=== PATIENT | female | born 1965 | race Caucasian/White ===

== ENCOUNTER 2024-08-29 15:49 | Emergency (ER) | payer BC, SELFPAY ==
--- NOTE | 2024-08-29 16:32 | PC.NURSE ---
CALLED FOR PT IN LOBBY AND OUTSIDE [phone]
--- NOTE | 2024-08-29 17:39 | PC.NURSE ---
PT CALLED 3 TIMES W/ NO ANSWER. ELSHERYLD.
== END 2024-08-29 17:40 | disposition left against medical advice (07) ==
LOC: SERX 17:47
PROVIDERS: Emergency Provider Emergency Medicine
DX: Z53.21 Procedure and treatment not carried out due to patient leaving prior to being seen by health care provider (principal)

== ENCOUNTER 2024-10-30 17:24 | Emergency (ER) | payer BC, SELFPAY ==
--- NOTE | 2024-10-30 17:27 | EKG_ITS ---
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
[2024-10-30 17:34] VITALS: BP 170/82; PULSE 69; RESP 18; TEMP 36.4; O2SAT 98; BMI 22.1
--- NOTE | 2024-10-30 17:34 | XR_ITS ---
Examination: PA lateral chest 2 views Technique: Upright PA lateral chest 2 views Exam date and time: October 30, 2024 1741 hrs. Comparison November 02, 2022 Indications: Chest pain today. Findings: Normal heart size Lungs are clear. The osseous structures are intact Impression: No active disease
--- NOTE | 2024-10-30 17:34 | PD.EDRME ---
Rapid Medical Screening Exam RME Arrival date/time: 10/30/24 17:24 59-year-old female with a history of hypertension presents to the emergency room with a chief complaint of 9 out of 10 sternal chest pain that radiates to the left arm x 1 day. I have greeted and performed a focused initial assessment of this patient. A comprehensive ED assessment and evaluation of the patient, analysis of all test results, and completion of the medical decision making process will be conducted by additional ED providers. Chief Complaint: Chest Pain Time Seen by Provider: 10/30/24 17:31 Vital signs reviewed by provider: Yes
[2024-10-30 17:58] LABS: Basophils # (Auto) 0.1 Thou/mm3 (0.0-0.2); Basophils % (Auto) 1 % (0-2.5); Eosinophils # (Auto) 0.1 Thou/mm3 (0.0-0.5); Eosinophils % (Auto) 2 % (0-10); Hematocrit 36.2 % (36.0-46.0); Hemoglobin 12.4 g/dL (12.0-16.0); Immature Granulocytes % (Auto) 0 % (0-0); Immature Granulocytes Auto 0.01 Thou/mm3 (0.00-0.00); Lymphocytes # (Auto) 2.5 Thou/mm3 (1.0-4.8); Lymphocytes % (Auto) 37 % (10-50); Mean Corpuscular HGB Conc 34.3 g/dl (31.0-37.0); Mean Corpuscular Hemoglobin 33.2 pg (25.0-35.0); Mean Corpuscular Volume 97 fL (80-100); Monocytes # (Auto) 0.5 Thou/mm3 (0.0-0.8); Monocytes % (Auto) 8 % (0-12); Neutrophils # (Auto) 3.5 Thou/mm3 (1.8-7.7); Neutrophils % (Auto) 52 % (37-80); Nucleated Red Blood Cell % 0 /100 WBC (0); Platelet Count 363 Thou/mm3 (140-440); RDW Standard Deviation 45.8 fL (36.4-46.3); Red Blood Count 3.73 Miln/mm3 (4.00-5.20); White Blood Count 6.8 Thou/mm3 (3.6-11.0)
[2024-10-30 18:16] LABS: Partial Thromboplastin Time 27.4 Seconds (22.0-36.0)
[2024-10-30 18:18] LABS: B-Type Natriuretic Peptide 22 pg/mL (0-100)
[2024-10-30 18:38] LABS: Alanine Aminotransferase 13 U/L (10-49); Albumin/Globulin Ratio 1.9 (1.2-2.2); Alkaline Phosphatase 52 U/L (46-116); Anion Gap 6 (7-16); Aspartate Amino Transferase 17 U/L (0-34); BUN/Creatinine Ratio 16 Ratio (12-20); Bilirubin,Total 0.4 mg/dL (0.3-1.2); Blood Urea Nitrogen 13 mg/dL (9-23); Calcium 9.8 mg/dL (8.3-10.6); Calcium (Corrected) 9.8 mg/dL (8.5-10.1); Carbon Dioxide 28.5 mMol/L (20.0-31.0); Chloride 104 mMol/L (98-107); Creatinine (Component) 0.8 mg/dL (0.6-1.3); Estimated Creatinine Clearance 59.1 mL/min (>60); Globulin 2.6 gm/dL (2.3-3.5); Glucose 99 mg/dL (74-106); Magnesium 2.2 mg/dL (1.6-2.6); Osmolality,Calculated 275 (275-295); Sodium 138 mMol/L (136-145); Total Protein 7.6 gm/dL (5.7-8.2); Troponin I < 0.020 ng/mL (0.0-0.045); eGFR > 60 See Note
[2024-10-30 18:55] LABS: Collection Type, Urine Clean Catch
[2024-10-30 19:29] LABS: Bilirubin,Urine Negative (Negative); Blood,Urine Negative (Negative); Clarity,Urine Clear (Clear/Hazy); Color,Urine Colorless (Lt Yel-Yel); Glucose, Urine Negative (Negative); Ketones,Urine Negative (Negative); Leukocyte Esterase,Urine Negative (Negative); Nitrite,Urine Negative (Negative); Protein,Urine Negative (Neg - Trace); RBC,Urine 2 /hpf (0-3); Specific Gravity,Urine 1.009 (1.001-1.035); Squamous Epithelial Cell,Urine 2 /hpf (0-5); Urobilinogen,Urine Negative mg/dL (0.0-1.0); WBC,Urine 1 /hpf (0-5)
[2024-10-30 19:43] LABS: Amphetamine/Methamp Scrn,U Negative (Negative); Barbiturate Screen,Urine Negative (Negative); Benzodiazepines Screen,Urine Negative (Negative); Benzoylecgonine Screen, Ur Negative (Negative); Fentanyl Screen,Urine Negative (Negative); Opiate Screen,Urine Negative (Negative); THC Screen,Urine Negative (Negative)
--- NOTE | 2024-10-30 22:01 | EDNOTE_ITS ---
ED Chest Pain RME/HPI General Chief Complaint: Chest Pain Stated Complaint: left side chest pain, radiating to left arm Time Seen by Provider: 10/30/24 17:31 Arrival date/time: 10/30/24 17:24 59-year-old female past medical history of hypertension presents emergency department complaining of left-sided chest pain that radiates to the left arm and worsens with arm movement that started 1 day ago. Patient also reports blood pressure has been elevated and she recently upped her metoprolol from 25 mg to 50mg today. Limitations: no limitations RME / HPI RME / HPI narrative: 10/30/24 17:24 59-year-old female with a history of hypertension presents to the emergency room with a chief complaint of 9 out of 10 sternal chest pain that radiates to the left arm x 1 day. I have greeted and performed a focused initial assessment of this patient. A comprehensive ED assessment and evaluation of the patient, analysis of all test results, and completion of the medical decision making process will be conducted by additional ED providers. Related Data Home Medications ?Medication ?Instructions ?Recorded ?Confirmed No Known Home Medications 12/12/19 07/05/22 Allergies Allergy/AdvReac Type Severity Reaction Status Date / Time No Known Allergies Allergy Verified 10/30/24 17:27 Review of Systems Review of Systems Systems Reviewed: All systems reviewed, normal except as documented Constitutional Constitutional: Reports system reviewed and no additional complaints, except as documented, Denies body ache(s), Denies chills and Denies fever(s) Eyes Eyes: Reports system reviewed and no additional complaints, except as documented and Denies change in vision ENT Ears, Nose, Mouth, and Throat: Reports system reviewed and no additional complaints, except as documented, Denies disequilibrium, Denies dizziness, Denies sore throat and Denies vertigo Cardiovascular Cardiovascular: Reports system reviewed and no additional complaints, except as documented, Reports chest pain and Denies dyspnea Respiratory Respiratory: Reports system reviewed and no additional complaints, except as documented, Denies chest congestion, Denies cough and Denies dyspnea Gastrointestinal Gastrointestinal: Reports system reviewed and no additional complaints, except as documented, Denies abdominal pain, Denies nausea and Denies vomiting Musculoskeletal Musculoskeletal: Reports system reviewed and no additional complaints, except as documented, Denies abnormal gait and Denies arthralgias Integumentary/Breasts Skin/Breast: Reports system reviewed and no additional complaints, except as documented, Denies erythema, Denies rash and Denies wounds Neurologic Neurologic: Reports system reviewed and no additional complaints, except as documented, Denies abnormal gait, Denies disequilibrium, Denies dizziness and Denies vertigo Past Medical History Past Medical History NEUROLOGIC: Negative Neurological Disorders or Seizures CARDIAC: Negative Cardiac Disorders or Congestive Heart Failure RESPIRATORY: Negative Chronic Obstructive Pulmonary Disease (COPD) GASTROINTESTINAL: Negative Gastrointestinal Disorders GENITOURINARY: Positive Genitourinary Disorders (TL); Negative Renal Disease MUSCULOSKELETAL: Negative Musculoskeletal Disorders ENDOCRINE: Negative Endocrine Disorders, Diabetes Mellitus Type 1 or Diabetes Mellitus Type 2 HEMATOLOGIC: Negative Blood Disorders PSYCHO/SOCIAL: Negative Depression or Anxiety OTHER HISTORY: Positive Chicken Pox; Negative Blood Transfusions, Blood Transfusion Reaction, Anesthesia Reactions or Chemotherapy Surgical History SURGICAL: Positive Tubal Ligation; Negative Ear Surgery or Joint Replacement Social History SMOKING STATUS: Former smoker ED Exam General Limitations: Present no limitations General appearance: Present alert and in no apparent distress Head Head exam: Present atraumatic Eye Eye exam: Present normal appearance, PERRL and EOMI ENT ENT exam: Present normal exam, normal oropharynx and mucous membranes moist Neck Neck exam: Present normal inspection, full ROM and trachea midline Chest Chest inspection: Present normal inspection and symmetric chest wall rise Respiratory Respiratory exam: Present normal lung sounds bilaterally Cardiovascular Cardiovascular exam: Present regular rate, normal rhythm and normal heart sounds Abdominal Exam Abdominal exam: Present soft and normal bowel sounds Extremities Exam Extremities exam: Present normal inspection and full ROM Back Exam Back exam: Present normal inspection and full ROM Neurological Exam Neurological exam: Present alert, oriented X3 and CN II-XII intact Psychiatric Psychiatric exam: Present normal affect and normal mood Skin Skin exam: Present warm, dry, intact and normal color Course Quality Measures none Orders Category Date Time Status EKG (ED ONLY) *Do not use* NOW Care 10/30/24 17:27 Completed EKG (ED Only) Stat Exams 10/30/24 17:27 Draft XR chest 2V Stat Exams 10/30/24 17:34 Completed B-Type Natriuretic Peptide Stat Lab 10/30/24 17:53 Completed CBC Stat Lab 10/30/24 17:53 Completed Comprehensive Metabolic Panel Stat Lab 10/30/24 17:53 Completed Drug Screen,Urine Stat Lab 10/30/24 18:17 Completed Magnesium Stat Lab 10/30/24 17:53 Completed Partial Thromboplastin Time Stat Lab 10/30/24 17:53 Completed Prothrombin Time with INR Stat Lab 10/30/24 17:53 Completed Troponin I Stat Lab 10/30/24 17:53 Completed Urinalysis Stat Lab 10/30/24 18:17 Completed Vital Signs Vital signs: Vital Signs Temperature 97.5 F 10/30/24 17:34 Pulse Rate 69 10/30/24 17:34 Respiratory Rate 18 10/30/24 17:34 Blood Pressure 170/82 H 10/30/24 17:34 Pulse Oximetry (%) 98 10/30/24 17:34 Oxygen Delivery Method Room Air 10/30/24 17:34 98% room air within normal limits Procedures -ED EKG Interpretation #1: Date of EK10/30/24 Time of EK:32 Rate: 76 Interpretation: Interpreted by me EKG Impression: Normal sinus rhythm, No acute ST-T changes, No ectopy, No ischemic changes and Normal QRS Chest Pain MDM Narrative MDM Narrative:: 59-year-old female past medical history of hypertension presents emergency department complaining of left-sided chest pain that radiates to the left arm and worsens with arm movement that started 1 day ago. Patient also reports blood pressure has been elevated and she recently upped her metoprolol from 25 mg to 50mg today. CBC was unremarkable for any leukocytosis. CMP was unremarkable for any elevated LFTs or gross electrolyte abnormalities. Urinalysis unremarkable. EKG sinus rhythm with normal troponin. Chest x-ray was unremarkable for any pneumonic infiltrates. Patient reports has pending visit this week with assistant associate professor. Patient data External records reviewed:: [facility] previous records Clinical information provided by:: patient Social determinants that could affect healthcare access:: none Patient has the following chronic illnesses:: See chart How is presenting disease/condition affected by chronic disease/condition?: uneffected by Evaluation data The following diagnostics were reviewed and interpreted by me:: lab results, radiology exam(s) and EKG tracing(s) Lab and/or radiology exams considered but not ordered:: Ordered Interpretation Summary: Interpreted by me Medications / Prescriptions Medications or Prescriptions considered but not ordered:: N/A Medication administrations:: N/A Consultations Consultation(s) initiated? (list below): No Diagnosis Chest Pain Differential Diagnosis: pneumothorax, stable angina, unstable angina pectoris, atypical chest pain, st elevation myocardial infarction, costochondritis and chest pain Most likely diagnosis given after review of the tests above:: Atypical chest pain Admission Indicated Admission indicated?: not indicated Admission Request Was there a request for admission?: No Disposition Plan Disposition Plan: Discharge Discharge Attestation Discharge Attestation: The patient and all family members were given an opportunity to ask questions and understood the discharge instructions. Discharge instructions specifically effects, indications for sooner follow up or return to the emergency department, and the expected course of current diagnosis. Patient condition: Stable Discharge Plan Plan Patient Disposition: HOME (Self Care) Disposition Comment: Stable Prescriptions/Referrals Prescriptions/Med Rec: No Action No Known Home Medications Referrals: Mary Cnoti MD [Primary Care Provider] - In 1 week Problem List Clinical Impression: Atypical chest pain Patient/Caregiver Discharge Instructions Discharge Activity: activity as tolerated Education Materials: ED Chest Pain, Noncardiac Additional Instructions: Continue taking your blood pressure medications as prescribed your primary care provider. Close follow-up with primary care provider and your assistant associate professor as discussed. Keep recording blood pressure and diary for follow-up visit. Return immediately to emergency department for any worsening symptoms or as needed. Print Language: Macedonian Stand Alone Forms: Rachel Award Info., Patient Portal Info Letter PA/NORMAN Supervising Physician CK/NORMAN Supervising Physician: Dr. Coronel
[2024-10-30 22:06] VITALS: BP 154/91; PULSE 62; RESP 16; O2SAT 98
== END 2024-10-30 22:07 | disposition home or self-care (01) ==
PROVIDERS: Nurse Practitioner Family; Emergency Provider Emergency Medicine; PCP Family Medicine
DX: R07.89 Other chest pain (principal); I10 Essential (primary) hypertension
CPT/HCPCS: 36415; 71046; 80053; 80307; 81001; 83735; 83880; 84484; 85025; 85610; 85730; 93005; 99283

== ENCOUNTER 2025-01-23 08:20 | Day surgery (SDC) | payer BC, SELFPAY ==
[2025-01-23] VITALS (15 sets, daily range): BP systolic 90–148; BP diastolic 52–98; PULSE 59–114; RESP 8–18; TEMP 36.8–37; O2SAT 91–100; BMI 22.3
[2025-01-23] MEDS: SODIUM CHLORIDE 0.9% 500 ML 500 ML 20 ML IV (10:01)
[2025-01-23] MEDS: DiphenhydrAMINE INJ 50 MG/ML VIAL 25 MG IV (10:05)
[2025-01-23] MEDS: fentaNYL CIT INJ 50 mCg/ML AMP 2ML (ASD USE ONLY) IV (10:08)
[2025-01-23] MEDS: MIDAZOLAM INJ 1 MG/ML VIAL 2 ML (ASD USE ONLY) 2 MG IV (10:29)
[2025-01-23] MEDS: MEPERIDINE INJ 25 MG/ML VIAL (ASD USE ONLY) IV (10:29)
== END 2025-01-23 11:50 | disposition home or self-care (01) ==
PROVIDERS: PCP Family Medicine; Referring Provider Specialist; Visit Provider Specialist
PROC: 0DBE8ZX Excision of Large Intestine, Via Natural or Artificial Opening Endoscopic, Diagnostic (ICD-10-PCS; CPT 45380; principal; 2025-01-23 09:45)
DX: K57.30 Diverticulosis of large intestine without perforation or abscess without bleeding (principal); K56.699 Other intestinal obstruction unspecified as to partial versus complete obstruction; K64.9 Unspecified hemorrhoids; Z88.0 Allergy status to penicillin
CPT/HCPCS: 45378; J1200; J2175; J2250; J3010; J7040

== ENCOUNTER → 2025-06-13 | Outpatient (CLI) | payer BC, SELFPAY ==
--- NOTE | 2025-06-13 08:03 | EKG_ITS ---
[facility] Test Date: 2025-06-13 Pat Name: ZACK ERAZO Department: Room: - Gender: Female Welding Manager: KAITLYNN : 1965 Requested By: Mary Ruiz Order Number: [id number] Reading MD: Mary Ruiz Measurements Intervals [place] Rate: 58 P: 8 [place]: 125 QRS: 70 QRSD: 81 T: 46 QT: 420 QTc: 414 Interpretive Statements SINUS BRADYCARDIA Compared to ECG 10/30/2024 17:32:54 Sinus rhythm no longer present /store/S0/[id number].pdf
[2025-06-13 08:15] LABS: Basophils # (Auto) 0.1 Thou/mm3 (0.0-0.2); Basophils % (Auto) 1 % (0-2.5); Eosinophils # (Auto) 0.1 Thou/mm3 (0.0-0.5); Eosinophils % (Auto) 2 % (0-10); Hematocrit 39.1 % (36.0-46.0); Hemoglobin 13.0 g/dL (12.0-16.0); Immature Granulocytes Auto 0.01 Thou/mm3 (0.00-0.00); Lymphocytes # (Auto) 1.8 Thou/mm3 (1.0-4.8); Lymphocytes % (Auto) 37 % (10-50); Mean Corpuscular HGB Conc 33.2 g/dl (31.0-37.0); Mean Corpuscular Hemoglobin 32.1 pg (25.0-35.0); Mean Corpuscular Volume 97 fL (80-100); Monocytes # (Auto) 0.4 Thou/mm3 (0.0-0.8); Monocytes % (Auto) 9 % (0-12); Neutrophils # (Auto) 2.4 Thou/mm3 (1.8-7.7); Neutrophils % (Auto) 51 % (37-80); Nucleated Red Blood Cell # 0.00 Thou/mm3 (0.00-0.00); Nucleated Red Blood Cell % 0 /100 WBC (0); Platelet Count 330 Thou/mm3 (140-440); RDW Standard Deviation 45.2 fL (36.4-46.3); Red Blood Count 4.05 Miln/mm3 (4.00-5.20); White Blood Count 4.7 Thou/mm3 (3.6-11.0)
[2025-06-13 08:44] LABS: Alanine Aminotransferase 11 U/L (10-49); Albumin, Serum 4.7 gm/dL (3.4-4.8); Albumin/Globulin Ratio 2.0 (1.2-2.2); Alkaline Phosphatase 50 U/L (46-116); Anion Gap 8 (7-16); Aspartate Amino Transferase 19 U/L (0-34); BUN/Creatinine Ratio 13 Ratio (12-20); Bilirubin,Total 0.7 mg/dL (0.3-1.2); Blood Urea Nitrogen 12 mg/dL (9-23); Calcium 10.5 mg/dL (8.3-10.6); Calcium (Corrected) 10.5 mg/dL (8.5-10.1); Carbon Dioxide 28.7 mMol/L (20.0-31.0); Chloride 105 mMol/L (98-107); Creatinine (Component) 0.9 mg/dL (0.6-1.3); Globulin 2.4 gm/dL (2.3-3.5); Glucose 107 mg/dL (74-106); Osmolality,Calculated 282 (275-295); Potassium 4.9 mMol/L (3.4-5.1); Sodium 142 mMol/L (136-145); Total Protein 7.1 gm/dL (5.7-8.2); eGFR > 60 See Note
[2025-06-13 09:18] LABS: INR 1.0 (0.9-1.3); Partial Thromboplastin Time 26.6 Seconds (22.0-36.0); Prothrombin Time 10.9 Seconds (9.0-12.2)
== END | disposition home or self-care (01) ==
PROVIDERS: PCP Family Medicine; Referring Provider Family Medicine
DX: Z01.818 Encounter for other preprocedural examination (principal); K57.92 Diverticulitis of intestine, part unspecified, without perforation or abscess without bleeding; Z01.810 Encounter for preprocedural cardiovascular examination
CPT/HCPCS: 36415; 80053; 85025; 85610; 85730; 93005

== ENCOUNTER → 2025-09-06 | Outpatient (CLI) | payer BC, SELFPAY ==
--- NOTE | 2025-09-06 08:45 | XR_ITS ---
Examination: Screening digital mammography, bilateral Computer aided detection 3-D breast Tomosynthesis, bilateral Date and time of exam: September 06, 2025, 0832 hours, compared to mammograms dating to November 16, 2012 Indication: Screening Technique: Nonmagnified MLO, CC views of the breasts to been obtained, reconstructed from 3-D Tomosynthesis images. R2 computer aided detection program utilized for evaluation of suspicious masses and/or abnormal calcifications. 3-D Tomosynthesis images obtained. Findings: The breasts are heterogeneously dense, which may obscure small masses Benign calcifications No interval suspicious masses Impression: BI-RADS category II: Benign Findings. Recommend 1 year follow-up mammogram.
== END | disposition home or self-care (01) ==
LOC: CDIM 08:15
PROVIDERS: Referring Provider Family Medicine; Visit Provider Family Medicine
DX: Z12.31 Encounter for screening mammogram for malignant neoplasm of breast (principal); R92.323 Mammographic fibroglandular density, bilateral breasts; R92.1 Mammographic calcification found on diagnostic imaging of breast
CPT/HCPCS: 77063; 77067